=== PATIENT | male | born 1955 | race Caucasian/White ===

== ENCOUNTER 2018-04-01 05:00 | Inpatient (IN) | payer OTHER ==
[2018-03-31 12:14] LABS: BASOPHILS 0.4 % (0-2); EOSINOPHILS 3.4 % (0-7); HEMATOCRIT 42.8 % (42.0-54.0); HEMOGLOBIN 14.9 g/dL (13.5-17.5); IMMATURE GRANULOCYTES 1.1 % (0-5); LYMPHOCYTES 30.2 % (15-50); MCH 31.2 pg (26.0-34.0); MCHC 34.8 g/dL (31.0-37.0); MCV 89.7 fL (80.0-100.0); MEAN PLATELET VOLUME 9.7 fL (7.4-10.4); MONOCYTES 8.7 % (2-11); NEUTROPHILS 56.2 % (40-80); RBC 4.77 10x6/uL (4.20-6.10); RDW 12.6 % (11.5-14.5); WBC 5.6 10x3/uL (4.8-10.8)
[2018-03-31 12:20] LABS: PLATELET COUNT 227 10x3/uL (130-400)
[2018-03-31 12:22] LABS: APPEARANCE CLEAR (CLEAR); BILIRUBIN NEGATIVE (NEGATIVE); COLOR YELLOW (YELLOW); GLUCOSE NEGATIVE (NEGATIVE); KETONE NEGATIVE (NEGATIVE); NITRITE NEGATIVE (NEGATIVE); PROTEIN NEGATIVE (NEGATIVE); SPECIFIC GRAVITY 1.015 (1.005-1.020); UROBILINOGEN NORMAL (NORMAL)
[2018-03-31 12:43] LABS: APTT 39.7 SECONDS (22.8-39.4); INR 1.02 (0.85-1.17)
[2018-03-31 13:01] LABS: ALBUMIN 3.7 g/dL (3.4-5.0); ALKALINE PHOSPHATASE 71 U/L (46-116); ALT (SGPT) 175 U/L (10-68); BILIRUBIN - TOTAL 0.46 mg/dL (0.2-1.3); CALC OSMOLALITY 280 mosm/kg (275-300); CALCIUM 8.8 mg/dL (8.5-10.1); CARBON DIOXIDE 25.8 mmol/L (21.0-32.0); CHLORIDE - SERUM 107 mmol/L (98-107); CHOLESTEROL, TOTAL 84 mg/dL (0-200); CREATININE - SERUM 0.8 mg/dL (0.6-1.3); GLUCOSE 80 mg/dL (74-106); POTASSIUM - SERUM 4.7 mmol/L (3.5-5.1); PROTEIN - SERUM 6.8 g/dL (6.4-8.2); SODIUM 141 mmol/L (136-145); T4 THYROXIN - FREE 0.93 ng/dL (0.76-1.46); UREA NITROGEN 15 mg/dL (7-18); URIC ACID 5.3 mg/dL (2.6-7.2); eGFR NON AFRICAN AMERICAN > 90 mL/min (90-120)
[2018-04-01] VITALS (38 sets, daily range): BP systolic 72–136; BP diastolic 48–82; BMI 30.8
[~2018-04-01] VITALS: Ht 167.6 cm; Wt 82.7 kg
--- NOTE | ~2018-04-01 | CN ---
PATIENT NAME:DENIS NUÑEZ MEDICAL RECORD: [id number] : 53 LOCATION:[facility].CV05 ADMIT DATE: 04/01/18 ACCOUNT: [id number] CONSULTING PHYSICIAN: RAMONE ALDRICH MD REFERRING PHYSICIAN: ROSA VALENCIA MD DATE OF CONSULTATION: 04/02/2018 REASON FOR CONSULTATION: Medical management. HISTORY OF PRESENT ILLNESS: A 62-year-old gentleman, who is a patient of Dr. Barrios. Apparently 2 weeks ago, he developed substernal chest pain and he had presented to the Emergency Room. He was found to have arteriosclerotic heart disease. He had been seen by Dr. Valencia, who felt he would benefit from coronary artery bypass grafting. PAST MEDICAL HISTORY: Apparently, he has had migraine headaches most of his life. He also states that he had had a stroke in 2017, was found to have a patent foramen ovale. Apparently, he had this repaired in [facility]. The patient states he awakened approximately 2 weeks ago with substernal chest pain, presented for evaluation. FAMILY HISTORY: Father at 52, apparently had numerous transfusions in the 1960s, felt that his was secondary to cirrhosis, nondrinker. Mother also at 57 years of age, apparently had a history of having rheumatic fever as a youngster. The patient's twin brother has had cardiac stenting in the past, had pneumothorax. Sister apparently is healthy. HABITS: States he smoked as a kid, but has not smoked as an adult. 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 He is currently . He denies any ethanol, tobacco use or abuse. PAST SURGICAL HISTORY: He has had a vasectomy as well as a tonsillectomy and a right inguinal hernia repair. MEDICATIONS: None. ALLERGIES: None. REVIEW OF SYSTEMS: CONSTITUTIONAL: He denies any headaches, seizures, or syncope. HEENT: He denies any change in visual or auditory acuity. PULMONARY: He denied any shortness of breath, cough or congestion, history of TB, asthma or bronchitis. CARDIOVASCULAR: As stated above. GASTROINTESTINAL: No chronic nausea, vomiting, melena or hematochezia. GENITOURINARY: No urinary, frequency or dysuria. PHYSICAL EXAMINATION: GENERAL: The patient is postop day #1. He is alert. He is oriented times 3. He is in the ICU. VITAL SIGNS: His pulse ox is 92%, his blood pressure 111/63, his respiration 19, pulse 91. He is afebrile. HEENT: His head is normocephalic. No lesions. Ears: TMs clear. Eyes: CONSULT REPORT [id number] DENIS NUÑEZ Pupils are equal, round, reactive to light. His extraocular movements were intact. His nasal cavity, oral cavity, oropharynx clear. NECK: Supple. There is no adenopathy. HEART: Has a regular rate and rhythm without any murmurs, gallops or rubs. LUNGS: Clear. The patient has a central line placed. He also has chest tubes as well as Canseco catheter. SCDs on lower extremities. He has no active bleeding noted at the present time. He had a chest x-ray on the , chest x-ray revealed slightly worsened pulmonary venous congestion. He has a white count of 12.7, hemoglobin 11, hematocrit is 31.7, this is actually somewhat better than on April 01. His sodium is 136, potassium 4.2, chloride is 101, CO2 is 26.8, BUN is 18, creatinine is 1.5, his glucose is 178. Thyroid functions are normal. ASSESSMENT: Postoperative day #1 coronary artery bypass grafting times 2. History of CVA. History of patent foramen ovale with closure. PLAN: We will continue the current plan. We will follow along with you. Thanks for the consultation. TRANSINT:[id number] Voice Confirmation ID: [id number] DOCUMENT ID: [id number] RAMONE ALDRICH MD at 0938 CC: [id number] DICTATION DATE: 04/02/18 1108 NARROW FABRIC CALENDERER: 04/02/18 1211 ADM IN [facility] [address] [place] [address]
--- NOTE | ~2018-04-01 | OP ---
PATIENT NAME: DENIS NUÑEZ MEDICAL RECORD: [id number] :53 LOCATION:[facility] D.CV05 ADMISSION DATE:04/01/18 SURGEON: MITCHEL RON MD DATE OF OPERATION: 04/01/2018 SURGEON: Mitchel Ron MD. ANESTHESIA: General endotracheal, Dr. Miller. OPERATION PERFORMED: Coronary artery bypass: 1. Left internal thoracic to left anterior descending. 2 and 3. Reverse saphenous vein graft to the first diagonal, sequential obtuse marginal coronary artery. 4. Reverse saphenous vein graft to the right coronary artery. PREOPERATIVE DIAGNOSES: Atherosclerosis of the coronary arteries with angina. POSTOPERATIVE DIAGNOSIS: Atherosclerosis of the coronary arteries with angina. INDICATIONS FOR OPERATION: Angina pectoris. FINDINGS AT OPERATION: The left internal thoracic and reverse saphenous vein segment were of excellent quality for grafting. The target vessels were also good quality, although diffusely diseased. ESTIMATED BLOOD LOSS: Cell Saver was used. DESCRIPTION OF PROCEDURE: After informed consent and adequate preoperative medication evaluation, the patient was brought the operating room and placed on the table in supine position. After induction of general endotracheal anesthesia and application of appropriate monitoring devices, chest, neck, abdomen, and both legs were prepped and draped in sterile field. Utilizing Betadine scrub, alcohol, and Betadine solution, Betadine impregnated drape was also used. Saphenous vein was harvested from the right thigh, prepared for reverse saphenous vein graft. The leg was closed over drains utilizing 3-0 Vicryl and skin mohit. A median sternotomy incision was used and dissection carried down to the fascia. Hemostasis was maintained with electrocautery. Sternum was divided, innominate vein identified and protected. The left internal thoracic was taken down and prepared for grafting. The patient was given a calculated dose of heparin and cannulated in a standard fashion utilizing one aortic and one 2-stage cannula in the atrium and inferior vena cava. The patient was placed on cardiopulmonary bypass, cooled to 32 degrees centigrade. A crossclamp was placed just proximal to the aortic cannula and the patient was given cardioplegic solution through the aortic root. The patient was given a cold induction and cold maintenance. The patient was given cold intermittent cardioplegic solution throughout the procedure through the graft, through the root, or a combination of both. The first vessel to be grafted was the distal right. It was grafted end-to-side utilizing running 7-0 Prolene suture. The graft was measured back to the aorta and proximal anastomosis fashioned utilizing running 6-0 Prolene suture. Next, the first obtuse marginal was grafted end-to-side utilizing running 7-0 Prolene suture. Graft was measured to the first diagonal and a [id number] anastomosis fashioned utilizing running 7-0 Prolene suture. The graft was measured back to the aorta and the proximal anastomosis fashioned utilizing running 6-0 Prolene suture. Next, left internal thoracic was brought through the hole in pericardium, OPERATIVE REPORT [id number] DENIS NUÑEZ sutured to the left anterior descending end-to-side utilizing running 8-0 Prolene suture. Pedicle was attached to the epicardium with 7-0 Prolene suture. All maneuvers to remove trapped air was performed. The patient was given a warm cardioplegic reperfusion and controlled reperfusion. The patient was rewarmed to 37 degrees centigrade. Two atrial and two ventricular pacing wires were placed in the heart and brought out through the epigastric area. The patient was weaned from cardiopulmonary bypass. After being stable off bypass, given a calculated dose of protamine to reverse the heparin. Hemostasis was achieved. A #40 right angle and #36 chest tubes brought in through the epigastric area and placed in the mediastinum. A separate left Mikel drain was placed in the left hemithorax at the level of diaphragm. The chest was again irrigated. Instrument count and sponge count were correct times 2. The chest was closed in layers utilizing #7 wire on the sternum, #2 Vicryl on the linea alba and pectoralis fascia. Subcutaneous tissue was approximated with 3-0 Vicryl and skin was approximated with 3-0 subcuticular Vicryl. Sterile dressings were applied. The patient tolerated the procedure well and was transferred to cardiovascular recovery in stable condition. TRANSINT:[id number] Voice Confirmation ID: [id number] DOCUMENT ID: [id number] MITCHEL RON MD at 1256 CC: [id number] DICTATION DATE: 04/01/18 1452 FIELD ADMINISTRATOR: 04/01/18 1549 ADM IN [place] [id number] [place] [address]
--- NOTE | ~2018-04-01 | MORECARE ---
CASE MANAGEMENT DISCHARGE SUMMARY PATIENT: DENIS MCPHERSON UNIT: [id number] ADM DATE: 04/01/18 AGE: 62 : 53 SEX: M ROOM/BED: [facility] AUTHOR: CASE, PROJECT CONSULTANT PHYSICIAN: REFERRING PHYSICIAN: ROSA VALENCIA MD DATE OF SERVICE: 04/01/18 Discharge Plan Patient Name: DENIS MCPHERSON Facility: [facility]:[place] : 1955 Planned Disposition: Home Anticipated Discharge Date: Discharge Date: Expected LOS: Initial Reviewer: [email or web address] Initial Review Date: 04/04/2018 Generated: 04/07/18 12:00 pm Comments DCP- Discharge Planning Updated by [email or web address]: Nelsy Guadalupe on 04/04/18 9:[address] Patient Name: DENIS MCPHERSON Admission Status: Elective Accout number: [id number] Admission Date: 04-01-2018 : 1955 Admission Diagnosis: Attending: ROSA VALENCIA Current LOS: 3 Anticipated DC Date: Planned Disposition: Home Primary Insurance: [facility] Discharge Planning Comments: CM met with patient and regarding discharge planning. Patient states that they plan on discharging home. will transport home in private vehicle. Patient denies any needs at this time. Patient may need walk test if 02 is needed at time of discharge. CM will continue to follow and assist in discharge planning as needed. Inspecting Supervisor: Nelsy Guadalupe DCPIA - Discharge Planning Initial Assessment Updated by [email or web address]: Nelsy Guadalupe on 04/04/18 10:21 am * Is the patient Alert and Oriented? Yes * How many steps to enterexit or inside your home? * PCP Dr. Capellan * Pharmacy [facility] * Preadmission Environment Home with Family * ADLs Independent * Equipment None * List name and contact numbers for known caregivers / representatives who currently or will assist patient after discharge: Naheed Mchperson () [phone] Kayli Kang (daughter) [phone] * Verbal permission to speak to the caregivers and representatives has been obtained from the patient. Yes * Community resources currently utilized None * Additional services required to return to the preadmission environment? No * Can the patient safely return to the preadmission environment? Yes * Has this patient been hospitalized within the prior 30 days at any hospital? Yes External Providers External Provider: OTHER-OTHER Next Contact Date: Service Request Date: Service Type: Resolution: Reviewer: Comments: Patient Name: DENIS MCPHERSON Page [id number] All edits/amendments must be made on the electronic document DICTATION DATE: 04/07/181099 MOLD MOVER: 04/07/18 1100 RPT#: [id number] DC DATE: STATUS: ADM IN [facility] [address] [place] [address] END OF REPORT
--- NOTE | ~2018-04-01 | HP ---
PATIENT: DENIS NUÑEZ MEDICAL RECORD: [id number] ACCOUNT: [id number] LOCATION:[facility].CV05 : 53 ADMISSION DATE: 04/01/18 HISTORY AND PHYSICAL EXAMINATION DENIS Enriquez (62yo, M) ID# [id number]. Date/Time03/31/2018 09:01DONXC34 1955Service Dept.NPP_[facility] ClinicProviderEDBLAS VALENCIA MDInsuranceMed Primary: [employer] Insurance # : [id number] Policy/Group # : [id number] Referring Provider Name : DENNYS LOPEZ Employer Name : UNKNOWN Prescription: [employer] - Member is eligible. Chief Complaint Followup: Coronary atherosclerosis PREOP FOR CABG Patient's Care Team Referring Provider (): DENNYS LOPEZ: [address] [place] [phone], , Machine Ii Engraver: RAJANI MILLS MD: [address] [place] [phone], , Patient's Pharmacies [facility] ([facility]): [address] [place] [address] [address], [facility] [address], , Vitals BP:124/70 sitting R arm 03/31/2018 09:46 am 120/68 sitting L arm 03/31/2018 09:47 amHR:70/REG 03/31/2018 09:47 amHt:5 ft 6 in 03/31/2018 09:43 amWt:180 lbs 03/31/2018 09:43 amBMI:29.1 03/31/2018 09:43 amAllergies Reviewed Allergies NKDAMedications Reviewed Medications amitriptyline 25 mg tablet Take 1 tablet(s) every day by oral route.03/28/18 enteredKat WilsonAspir-81 81 mg tablet,delayed release Take 1 tablet(s) every day by oral route.03/28/18 enteredKat Wilsonatorvastatin 40 mg wexxvt90/18/18 filledOPTUMRXbutalbital 50 mg-acetaminophen 325 mg-caffeine 40 mg-codeine 30 mg cap Take 1 capsule(s) every 4 hours by oral route.03/28/18 enteredKathy Wilsonenoxaparin 60 mg/0.6 mL subcutaneous rhdxhab12/20/18 filledOPTUMRXisosorbide mononitrate ER 30 mg tablet,extended release 24 hr03/23/18 filledOPTUMRXmetoprolol succinate ER 25 mg tablet,extended release 24 hr03/23/18 filledOPTUMRXnitroglycerin 0.4 mg sublingual qzaiug16/18/18 filledOPTUMRXXarelto 20 mg tablet was on after PFO pqkordh14/18/18 filledOPTUMRXProblems Reviewed Problems Coronary atherosclerosis - Onset: 03/29/2018 Family History Reviewed Family History parent, siblings with cardiovascular disease child with hypertensionSocial History Reviewed Social History Cardiology Smoking Status: Former smoker HISTORY AND PHYSICAL [id number] DENIS NUÑEZ Alcohol intake: None Surgical History Reviewed Surgical History Other - 08/26/2017 - PFO closure Past Medical History Reviewed Past Medical History Cancer: Y - skin Depression: Y GERD: Y Hyperlipidemia: Y Hypertension: Y Stroke: Y Notes: PFO, closure done 08/26/17 Documents for Discussion Discussed the following documents: HEPATITIS (A+B+C) PANEL, SERUM - 03/24/18 Results: - SERUM OR PLASMA HEPATITIS A VIRUS IGM ANTIBODY DETECTION BY I MMUNOASSAY: NEGATIVE NEGATIVE - SERUM OR PLASMA HEPATITIS B VIRUS CORE IGM ANTIBODY DETECTION BY IMMUNOA: NEGATIVE NEGATIVE - SERUM OR PLASMA HEPATITIS B VIRUS SURFACE ANTIGEN DETECTION BY IMMUNOASSA: NEGATIVE NEGATIVE - HCV AB S/CO SERPL EIA: 0.2 PT/INR - 03/23/18 US, DUPLEX, CAROTID ARTERY - 03/21/18 UNKNOWN - 03/21/18 UNKNOWN - 03/21/18 CARDIAC CATHETERIZATION (SURG) - 03/21/18 Screening None recorded. HPI Angina/Chest Pain Reported by patient. Location: chest; does not radiate Quality: pressure; squeezing; tightness; heaviness Severity: mild Duration: lasts seconds; has noted for months Onset/Timing: abrupt onset without warning Context: exertional; occurs with physical stress Alleviating Factors: relieved with NTG Aggravating Factors: worse with activity Associated Symptoms: chest discomfort; shortness of breath; exertional dyspnea atherosclerosis coronary arteries with angina ROS Patient reports exercise intolerance but reports no fever, no night sweats, no significant weight gain, and no significant weight loss. He reports chest pain on exertion, arm pain on exertion, and shortness of breath when walking but reports no shortness of breath when lying down, no palpitations, and no known heart murmur. He reports no dry eyes , no irritation, and no vision change. He reports no difficulty hearing and no ear pain. He reports no frequent nosebleeds and no nose/sinus problems. He reports no sore throat, no bleeding gums, no snoring, no dry mouth, no mouth ulcers, no oral abnormal i ties, and no teeth problems. He reports no jugular HISTORY AND PHYSICAL [id number] NUÑEZ,LOYAL vein distension and no swollen glands. He reports no cough, no wheezing, no shortness of breath, and no coughing up blood. He reports no abdominal pain, no vomiting, normal appetite, no diarrhea, not vomi t ing blood, no nausea, and no constipation. He reports no incontinence, no difficulty urinating, no hematuria, and no increased frequency. He reports no muscle aches, no muscle weakness, no arthralgias/joint pain, no back pain, and no swelling in the extre m ities. He reports no abnormal mole, no jaundice, and no rashes. He reports no loss of consciousness, no weakness, no numbness, no seizures, no dizziness, and no headaches. He reports no depression, no sleep disturbances, feeling safe in relationship, and no alcohol abuse. He reports no fatigue. He reports no swollen glands and no bruising. He reports no runny nose, no sinus pressure, no itching, no hives, and no frequent sneezing. ROS as noted in the HPI Physical Exam Patient is a 62-year-old male. Constitutional: General Appearance well nourished and developed and healthy-appearing. Level of Distress NAD. Ambulation ambulating normally. Cardiovascular: Apical Impulse not displaced or no thrill. Heart Auscultation normal s1 and s2; no murmurs, rubs, or gallops; and RRR. Arterial Pulses no abdominal aorta bruits, femoral bruits, or popliteal bruits and 2+ bilateral, carotid 2+ bilateral, femoral 2+ bilateral, popliteal 2+ bilateral, and dorsalis p roshan 2+ bilateral. Edema no edema or varicosities. Lungs: Repiratory Effort no dyspnea. Percussion no hyperresonance or dullness or flatness. Auscultation no wheezing, rhonchi, or rales / crackles and breathing sounds normal, good air movement, and CTA except as noted. Abdomen: Bowl Sounds normal. Inspection and Palpation no tenderness, guarding, masses, or rebound tenderness and soft and non-distended. Liver non-tender and no hepatomegaly. Spleen non-tender and no splenomegaly. Hernia none palpable. Musculoskeletal System: Gait And Stance normal gait and stance. Digits and Nails normal nails and no cyanosis. Neurologic: Cranial Nerves grossly intact. Reflexes DTRs 2+ bilaterally throughout. Sensation grossly intact. Lymph Nodes: Lymph Nodes no cervical LAD, supraclavicular LAD, axillary LAD, or inguinal LAD. Eyes: Lids and Conjunctivae no discharge or pallor and non-injected. Pupils PERRLA. Cornea grossly intact. EOM EOMI. Lens clear. Sclerae non-icteric. Neck: Neck no masses, enlarged lymph nodes, or carotid bruits and supple and trachea midline. Thyroid no enlargement or nodules and non-tender. Skin: Inspection and Palpation no rash, lesions, ulcers, jaundice, or abnormal nevi. Assessment / Plan atherosclerosis coronary artery disease with angina increasing frequency 1. Coronary atherosclerosis I25.110: Atherosclerotic heart disease of [place] coronary artery with unstable angina pectoris HISTORY AND PHYSICAL [id number] DENIS NUÑEZ Discussion Notes I have discussed the patient's disease process with him and his in detail as well as the alternative methods of treatment. We discussed coronary artery bypass including the expected benefits and risks which include bleeding, infection, stroke, , and the imponderables. He understands all of the above and wishes to proceed with planned aleja wen. ROSA VALENCIA MD at 1256 CC: [id number] DICTATION DATE: 03/31/18919 KOSHER DIETARY SERVICE SUPERVISOR: KP 03/31/18 1316 ADM IN [facility] [address] [place] [id number]
--- NOTE | ~2018-04-01 | TEE ---
PATIENT:DENIS NUÑEZ MEDICAL RECORD: [id number] LOCATION:[place] [address] AGE OF PATIENT: 62 ADMISSION DATE: 04/01/18 SEX: M REFERRING PHYSICIAN: INTERPRETING PHYSICIAN: TERESA MARTÍNEZ MD TRANSESOPHAGEAL ECHOCARDIOGRAM Date: 04/01/18 ALPHONSO CHARGE Y INDICATIONS: CABG PREMEDICATIONS: PATIENT'S RESPONSE PROCEDURE DOPPLER MEASUREMENTS: LVIT LA PA RA LVOT RVOT Asc. Ao AV Gradient Peak AV Mean AV Area MV Gradient Peak MV Mean MV Area INTERPRETATION: LVD: 3.6 LVS: 1.9 Doppler: 2-D: COLOR FLOW DOPPLER NORMAL SALINE STUDY: MISCELLANOUS: DIAGNOSIS: PLAN: Enterprise Resource Planner:Nadine Casanova Gps Navigation Installer: Andrea FAUST COMMENTS: DATE OF SERVICE: 04/01/2018 PROCEDURE: Transesophageal echo evaluation of valvular structures during bypass surgery. FINDINGS: 1. Left ventricular chamber size is within normal limits. Left ventricular systolic function is normal. Overall ejection fraction estimated at 60%. 2. Left atrium, right atrium, and right ventricle chamber sizes are within TRANSESOPHAGEAL ECHOCARDIOGRAM REPORT [id number] DENIS NUÑEZ normal limits. 3. Valvular structures have normal structure and motion. 4. Doppler interrogation reveals mild mitral regurgitation, trace aortic insufficiency, mild tricuspid regurgitation, no other valvular insufficiency or stenosis. 5. No evidence of pericardial effusion or left ventricular thrombus. TRANSINT:[id number] Voice Confirmation ID: [id number] DOCUMENT ID: [id number] at 1816 CC: [id number] DICTATION DATE: 04/01/18 1234 STORE ADMINISTRATIVE ASSISTANT: 04/01/18 1254 ADM IN [place] [id number] [place] [id number]
[~2018-04-01 05:00] MED LIST: ASPIRIN81 MG PO; BUTALB-APAP-CA1 EACH PO; ELAVIL25 MG PO; ISOSORBIDE MONO30 M1 PO; LIPITOR40 MG PO; LOVENOX60 MG/0.6 SC; NITROQUICK0.4 MG SL; TOPROL XL25 MG PO; XARELTO20 MG PO
[2018-04-01 07:42] LABS: PLT FUNCT.(P2Y12) PLAVIX 258 PRU (194-418)
[2018-04-01 14:10] LABS: MCHC 35.3 g/dL (31.0-37.0); MCV 87.8 fL (80.0-100.0); MEAN PLATELET VOLUME 9.5 fL (7.4-10.4); RDW 12.5 % (11.5-14.5)
[2018-04-01 14:26] LABS: HEMOGLOBIN 10.2 g/dL (13.5-17.5); RBC 3.29 10x6/uL (4.20-6.10); WBC 16.2 10x3/uL (4.8-10.8)
[2018-04-01 14:27] LABS: HEMATOCRIT 28.9 % (42.0-54.0)
[2018-04-01 14:34] LABS: APTT 38.5 SECONDS (22.8-39.4)
[2018-04-01 14:36] LABS: CARBON DIOXIDE 25.2 mmol/L (21.0-32.0); CHLORIDE - SERUM 109 mmol/L (98-107); CREATININE - SERUM 0.9 mg/dL (0.6-1.3); POTASSIUM - SERUM 4.5 mmol/L (3.5-5.1); SODIUM 143 mmol/L (136-145); UREA NITROGEN 16 mg/dL (7-18); eGFR NON AFRICAN AMERICAN > 90 mL/min (90-120)
[2018-04-01 14:41] LABS: INR 1.38 (0.85-1.17); PROTIME 16.5 SECONDS (11.6-15.0)
[2018-04-01 14:49] LABS: CALC OSMOLALITY 290 mosm/kg (275-300); GLUCOSE 191 mg/dL (74-106)
[2018-04-01 14:50] LABS: CALCIUM 6.6 mg/dL (8.5-10.1)
[2018-04-02] VITALS (52 sets, daily range): BP systolic 98–136; BP diastolic 43–76
[2018-04-02 06:35] LABS: HEMATOCRIT 31.7 % (42.0-54.0); MCH 30.8 pg (26.0-34.0); MCHC 34.7 g/dL (31.0-37.0); MCV 88.8 fL (80.0-100.0); MEAN PLATELET VOLUME 10.3 fL (7.4-10.4); RBC 3.57 10x6/uL (4.20-6.10); RDW 13.6 % (11.5-14.5); WBC 12.7 10x3/uL (4.8-10.8)
[2018-04-02 06:49] LABS: ALBUMIN 3.7 g/dL (3.4-5.0); ANION GAP 12.4 mmol/L (8-16); BILIRUBIN - TOTAL 0.79 mg/dL (0.2-1.3); CALCIUM 7.4 mg/dL (8.5-10.1); CARBON DIOXIDE 26.8 mmol/L (21.0-32.0); POTASSIUM - SERUM 4.2 mmol/L (3.5-5.1); PROTEIN - SERUM 5.3 g/dL (6.4-8.2)
[2018-04-02 06:50] LABS: CREATININE - SERUM 1.5 mg/dL (0.6-1.3)
[2018-04-03] VITALS (25 sets, daily range): BP systolic 98–174; BP diastolic 58–96
[2018-04-03 07:39] LABS: HEMATOCRIT 31.4 % (42.0-54.0); HEMOGLOBIN 10.6 g/dL (13.5-17.5); MCH 30.5 pg (26.0-34.0); MCHC 33.8 g/dL (31.0-37.0); MCV 90.5 fL (80.0-100.0); MEAN PLATELET VOLUME 10.1 fL (7.4-10.4); RBC 3.47 10x6/uL (4.20-6.10); RDW 13.7 % (11.5-14.5)
[2018-04-03 07:54] LABS: ALBUMIN 3.1 g/dL (3.4-5.0); ANION GAP 6.6 mmol/L (8-16); BILIRUBIN - TOTAL 0.71 mg/dL (0.2-1.3); CALCIUM 7.8 mg/dL (8.5-10.1); CARBON DIOXIDE 32.7 mmol/L (21.0-32.0); CREATININE - SERUM 1.1 mg/dL (0.6-1.3); POTASSIUM - SERUM 4.3 mmol/L (3.5-5.1); PROTEIN - SERUM 5.3 g/dL (6.4-8.2)
[2018-04-04] VITALS (25 sets, daily range): BP systolic 103–140; BP diastolic 57–78; Ht 167.6 cm; Wt 82.7 kg
[2018-04-04 06:06] LABS: HEMATOCRIT 28.6 % (42.0-54.0); HEMOGLOBIN 9.8 g/dL (13.5-17.5); MCH 30.9 pg (26.0-34.0); MCHC 34.3 g/dL (31.0-37.0); MCV 90.2 fL (80.0-100.0); MEAN PLATELET VOLUME 9.9 fL (7.4-10.4); PLATELET COUNT 97 10x3/uL (130-400); RBC 3.17 10x6/uL (4.20-6.10); RDW 13.4 % (11.5-14.5); WBC 9.9 10x3/uL (4.8-10.8)
[2018-04-04 06:39] LABS: ALBUMIN 2.8 g/dL (3.4-5.0); ALKALINE PHOSPHATASE 51 U/L (46-116); ALT (SGPT) 201 U/L (10-68); BILIRUBIN - TOTAL 0.73 mg/dL (0.2-1.3); CALC OSMOLALITY 266 mosm/kg (275-300); CARBON DIOXIDE 32.8 mmol/L (21.0-32.0); CHLORIDE - SERUM 98 mmol/L (98-107); CREATININE - SERUM 0.9 mg/dL (0.6-1.3); GLUCOSE 121 mg/dL (74-106); POTASSIUM - SERUM 3.8 mmol/L (3.5-5.1); PROTEIN - SERUM 5.4 g/dL (6.4-8.2); SODIUM 132 mmol/L (136-145); UREA NITROGEN 15 mg/dL (7-18); eGFR NON AFRICAN AMERICAN > 90 mL/min (90-120)
[2018-04-04 07:18] LABS: PLATELET ESTIMATE DECREASED
[2018-04-05] VITALS (26 sets, daily range): BP systolic 103–137; BP diastolic 59–74
[2018-04-05 06:24] LABS: HEMATOCRIT 28.7 % (42.0-54.0); HEMOGLOBIN 9.4 g/dL (13.5-17.5); MCH 30.1 pg (26.0-34.0); MCHC 32.8 g/dL (31.0-37.0); RBC 3.12 10x6/uL (4.20-6.10); RDW 13.8 % (11.5-14.5); WBC 8.1 10x3/uL (4.8-10.8)
[2018-04-05 06:43] LABS: ALBUMIN 2.5 g/dL (3.4-5.0); ALKALINE PHOSPHATASE 52 U/L (46-116); ALT (SGPT) 160 U/L (10-68); BILIRUBIN - TOTAL 0.64 mg/dL (0.2-1.3); CALC OSMOLALITY 267 mosm/kg (275-300); CARBON DIOXIDE 31.6 mmol/L (21.0-32.0); CHLORIDE - SERUM 99 mmol/L (98-107); CREATININE - SERUM 0.9 mg/dL (0.6-1.3); GLUCOSE 116 mg/dL (74-106); POTASSIUM - SERUM 4.1 mmol/L (3.5-5.1); PROTEIN - SERUM 5.5 g/dL (6.4-8.2); SODIUM 133 mmol/L (136-145); UREA NITROGEN 15 mg/dL (7-18); eGFR NON AFRICAN AMERICAN > 90 mL/min (90-120)
[2018-04-06] VITALS (24 sets, daily range): BP systolic 104–137; BP diastolic 49–77
[2018-04-06 06:07] LABS: HEMATOCRIT 28.6 % (42.0-54.0); HEMOGLOBIN 9.6 g/dL (13.5-17.5); MCH 30.6 pg (26.0-34.0); MCHC 33.6 g/dL (31.0-37.0); MCV 91.1 fL (80.0-100.0); MEAN PLATELET VOLUME 9.5 fL (7.4-10.4); RBC 3.14 10x6/uL (4.20-6.10); RDW 13.6 % (11.5-14.5); WBC 7.6 10x3/uL (4.8-10.8)
[2018-04-06 06:30] LABS: ALBUMIN 2.3 g/dL (3.4-5.0); ALKALINE PHOSPHATASE 51 U/L (46-116); ALT (SGPT) 118 U/L (10-68); BILIRUBIN - TOTAL 0.57 mg/dL (0.2-1.3); CALC OSMOLALITY 269 mosm/kg (275-300); CALCIUM 8.4 mg/dL (8.5-10.1); CARBON DIOXIDE 29.6 mmol/L (21.0-32.0); CHLORIDE - SERUM 101 mmol/L (98-107); CREATININE - SERUM 0.8 mg/dL (0.6-1.3); GLUCOSE 122 mg/dL (74-106); POTASSIUM - SERUM 3.9 mmol/L (3.5-5.1); PROTEIN - SERUM 5.5 g/dL (6.4-8.2); SODIUM 134 mmol/L (136-145); UREA NITROGEN 15 mg/dL (7-18); eGFR NON AFRICAN AMERICAN > 90 mL/min (90-120)
[2018-04-07] VITALS (13 sets, daily range): BP systolic 96–137; BP diastolic 56–79
[2018-04-07] MEDS ORDERED: HEMOCYTE PLUS C1 CAP PO (10:17)
[2018-04-07] MEDS ORDERED: PERCOCET 10/3251 TA1 PO (10:17)
[2018-04-07] MEDS ORDERED: COLACE100 MG PO (10:17)
[2018-04-07] MEDS ORDERED: K-DUR20 MEQ PO (10:17)
[2018-04-07] MEDS ORDERED: LASIX40 MG PO (10:17)
[2018-04-07] MEDS ORDERED: CORDARONE200 MG PO (10:17)
== END 2018-04-07 13:40 | disposition home health service (06) | DRG 236 ==
LOC: D.SDCHOLD 05:00 → D.CVICU 05:00 → D.SDCHOLD 07:30 → D.CVICU 12:15
PROVIDERS: Internal Medicine Cardiovascular Disease
PROC: 021209W Bypass Coronary Artery, Three Arteries from Aorta with Autologous Venous Tissue, Open Approach (ICD-10-PCS; 2018-04-01)
PROC: 06BP0ZZ Excision of Right Saphenous Vein, Open Approach (ICD-10-PCS; 2018-04-01)
PROC: 5A1221Z Performance of Cardiac Output, Continuous (ICD-10-PCS; 2018-04-01)
PROC: B24BZZ4 Ultrasonography of Heart with Aorta, Transesophageal (ICD-10-PCS; 2018-04-01)
PROC: 02100ZC Bypass Coronary Artery, One Artery from Thoracic Artery, Open Approach (ICD-10-PCS; principal; 2018-04-01 07:30)
DX: I25.110 Atherosclerotic heart disease of native coronary artery with unstable angina pectoris (principal); J98.11 Atelectasis; I10 Essential (primary) hypertension; K21.9 Gastro-esophageal reflux disease without esophagitis; E78.5 Hyperlipidemia, unspecified; Z86.73 Personal history of transient ischemic attack (TIA), and cerebral infarction without residual deficits; D64.9 Anemia, unspecified; R13.10 Dysphagia, unspecified

== ENCOUNTER → 2018-04-21 11:19 | Outpatient (CLI) | payer OTHER ==
[2018-04-04 16:07] VITALS: BMI 31.3
[~2018-04-21 11:19] MED LIST changes: +COLACE100 MG PO; +CORDARONE200 MG PO; +HEMOCYTE PLUS C1 CAP PO; +K-DUR20 MEQ PO; +LASIX40 MG PO; +PERCOCET 10/3251 TA1 PO
[2018-04-21 11:48] LABS: HEMATOCRIT 39.6 % (42.0-54.0); HEMOGLOBIN 12.9 g/dL (13.5-17.5); MCH 30.1 pg (26.0-34.0); MCHC 32.6 g/dL (31.0-37.0); MCV 92.5 fL (80.0-100.0); MEAN PLATELET VOLUME 8.9 fL (7.4-10.4); RBC 4.28 10x6/uL (4.20-6.10); RDW 13.2 % (11.5-14.5); WBC 4.9 10x3/uL (4.8-10.8)
[2018-04-21 12:23] LABS: ALBUMIN 3.3 g/dL (3.4-5.0); ANION GAP 15.5 mmol/L (8-16); BILIRUBIN - TOTAL 0.37 mg/dL (0.2-1.3); CALCIUM 8.9 mg/dL (8.5-10.1); CARBON DIOXIDE 23.5 mmol/L (21.0-32.0); CREATININE - SERUM 1.2 mg/dL (0.6-1.3); PROTEIN - SERUM 6.8 g/dL (6.4-8.2)
== END | disposition home or self-care (01) ==
LOC: D.RAD 08:00
PROVIDERS: Internal Medicine Cardiovascular Disease
DX: D64.9 Anemia, unspecified (principal); J91.8 Pleural effusion in other conditions classified elsewhere

== ENCOUNTER → 2018-08-31 18:15 | Outpatient (CLI) | payer OTHER ==
[2018-04-04 16:07] VITALS: BMI 31.3
[2018-08-31 19:32] LABS: ANION GAP 15.9 mmol/L (8-16); CALCIUM 9.2 mg/dL (8.5-10.1); CARBON DIOXIDE 24.8 mmol/L (21.0-32.0); CREATININE - SERUM 1.1 mg/dL (0.6-1.3); POTASSIUM - SERUM 4.7 mmol/L (3.5-5.1)
== END | disposition home or self-care (01) ==
LOC: D.LABREF 18:15
PROVIDERS: Nurse Practitioner
DX: R60.9 Edema, unspecified (principal)

== ENCOUNTER → 2019-04-21 10:22 | Outpatient (CLI) | payer MEDICARE, OTHER ==
[2018-04-04 16:07] VITALS: BMI 31.3
== END | disposition home or self-care (01) ==
LOC: D.HCCARDIO 10:22
PROVIDERS: ATTEND Internal Medicine Cardiovascular Disease
DX: I25.10 Atherosclerotic heart disease of native coronary artery without angina pectoris (principal)

== ENCOUNTER → 2019-05-02 10:18 | Outpatient (CLI) | payer MEDICARE, OTHER ==
[2018-04-04 16:07] VITALS: BMI 31.3
== END | disposition home or self-care (01) ==
LOC: D.HCCARDIO 10:18
PROVIDERS: ATTEND Internal Medicine Cardiovascular Disease
DX: I25.810 Atherosclerosis of coronary artery bypass graft(s) without angina pectoris (principal)

== ENCOUNTER 2019-10-28 21:53 | Inpatient (IN) | payer MEDICARE, OTHER ==
[~2019-10-28] VITALS: Ht 167.6 cm; Wt 59.5 kg
[2019-10-28 22:17] LABS: BASOPHILS 0.2 % (0-2); EOSINOPHILS 0.6 % (0-7); HEMATOCRIT 46.1 % (42.0-54.0); HEMOGLOBIN 16.7 g/dL (13.5-17.5); IMMATURE GRANULOCYTES 0.6 % (0-5); LYMPHOCYTES 14.1 % (15-50); MCHC 36.2 g/dL (31.0-37.0); MCV 88.3 fL (80.0-100.0); MEAN PLATELET VOLUME 9.4 fL (7.4-10.4); MONOCYTES 8.1 % (2-11); NEUTROPHILS 76.4 % (40-80); RBC 5.22 10x6/uL (4.20-6.10); RDW 12.6 % (11.5-14.5); WBC 12.7 10x3/uL (4.8-10.8)
[2019-10-28 22:22] LABS: CALC OSMOLALITY 278 mosm/kg (275-300); CALCIUM 9.8 mg/dL (8.5-10.1); CARBON DIOXIDE 23.5 mmol/L (21.0-32.0); CHLORIDE - SERUM 102 mmol/L (98-107); CREATININE - SERUM 1.1 mg/dL (0.6-1.3); GLUCOSE 128 mg/dL (74-106); POTASSIUM - SERUM 3.5 mmol/L (3.5-5.1); SODIUM 139 mmol/L (136-145); UREA NITROGEN 9 mg/dL (7-18); eGFR NON AFRICAN AMERICAN 71 mL/min (90-120)
[2019-10-28 22:23] LABS: D-DIMER-QUANTITATIVE 0.99 ug/mLFEU (0.20-0.54)
[2019-10-28 22:24] LABS: PLATELET COUNT 250 10x3/uL (130-400)
[2019-10-28 22:39] LABS: ALBUMIN 3.7 g/dL (3.4-5.0); ALKALINE PHOSPHATASE 100 U/L (30-120); ALT (SGPT) 31 U/L (10-68); BILIRUBIN - TOTAL 1.03 mg/dL (0.2-1.3); CKMB 0.5 U/L (0.0-3.6); CREATINE KINASE 65 UL (21-232); MAGNESIUM - SERUM 1.6 mg/dL (1.8-2.4); PROTEIN - SERUM 7.9 g/dL (6.4-8.2)
[2019-10-28 22:42] LABS: TROPONIN-I < 0.017 ng/mL (0.000-0.060)
--- NOTE | 2019-10-28 23:14 | NUR ---
PRIOR TO FIRST NITRO ADMINISTRATION PT REPORTS PAIN IS 04/15 BP-176/96 HR-85 O2 100%
--- NOTE | 2019-10-28 23:14 | NUR ---
HOLD ASA PER EDP DOWNEN
--- NOTE | 2019-10-28 23:15 | NUR ---
PT COLOR WNL FOR RACE. RESPIRATIONS ARE EVEN AND UNLABORED. NO DISTRESS NOTED. FAMILY AT BEDSIDE. VSS. MONITORED BY PULSE OX, CARDIAC, AND BP MONITORING. WILL CONTINUE TO MONITOR PATIENT.
--- NOTE | 2019-10-29 00:38 | NUR ---
PATIENT TO FLOOR WITH SIGNIFICANT OTHER. ANSWERES HISTORY QUESTIONS APPROPRIATELY. NO COMPLAINTS OF PAIN AT THIS TIME. ADMISSION HISTORY, VITAL SIGNS, MACHINIST INSTRUCTOR, AND EDUCATION ON NPO STATUS PROVIDED FOR PATIENT. NO OTHER NEEDS AT THIS TIME. CALL LIGHT IN REACH. CPOC.
[2019-10-29 05:03] LABS: BASOPHILS 0.1 % (0-2); EOSINOPHILS 0.5 % (0-7); HEMATOCRIT 40.2 % (42.0-54.0); IMMATURE GRANULOCYTES 0.5 % (0-5); LYMPHOCYTES 13.9 % (15-50); MCHC 34.8 g/dL (31.0-37.0); MCV 89.1 fL (80.0-100.0); MEAN PLATELET VOLUME 9.6 fL (7.4-10.4); MONOCYTES 8.7 % (2-11); NEUTROPHILS 76.3 % (40-80); PLATELET COUNT 209 10x3/uL (130-400); RBC 4.51 10x6/uL (4.20-6.10); RDW 12.6 % (11.5-14.5)
[2019-10-29 05:08] LABS: WBC 8.7 10x3/uL (4.8-10.8)
[2019-10-29 05:37] LABS: ALKALINE PHOSPHATASE 84 U/L (30-120); ALT (SGPT) 27 U/L (10-68); AMYLASE - SERUM 39 U/L (25-115); CALC OSMOLALITY 275 mosm/kg (275-300); CALCIUM 8.8 mg/dL (8.5-10.1); CHLORIDE - SERUM 104 mmol/L (98-107); GLUCOSE 119 mg/dL (74-106); LIPASE 89 U/L (73-393); PROTEIN - SERUM 6.4 g/dL (6.4-8.2); SODIUM 138 mmol/L (136-145); TROPONIN-I < 0.017 ng/mL (0.000-0.060); UREA NITROGEN 10 mg/dL (7-18); eGFR NON AFRICAN AMERICAN 80 mL/min (90-120)
[2019-10-29 05:38] LABS: POTASSIUM - SERUM 4.2 mmol/L (3.5-5.1)
[2019-10-29 12:06] VITALS: Ht 167.6 cm; Wt 59.5 kg
[2019-10-29 13:46] LABS: INR 0.99 (0.85-1.17)
[2019-10-29 16:10] LABS: CKMB 0.5 U/L (0.0-3.6); CREATINE KINASE 56 UL (21-232)
[2019-10-29 16:12] LABS: TROPONIN-I < 0.017 ng/mL (0.000-0.060)
--- NOTE | 2019-10-29 19:10 | NUR ---
BEDSIDE REPORT RECEIVED FROM DAY SHIFT, PT CARE ASSUMED. INTRODUCED SELF AND WROTE NAME ON BOARD. PT SITTING UP IN BED, WATCHING TV, AAOX4. DENIES ANY NEEDS AT THIS TIME. BED IN LOWEST POSITION, CALL LIGHT WITHIN REACH. WILL CONTINUE TO MONITOR.
[2019-10-29 19:53] LABS: CKMB 0.4 U/L (0.0-3.6); CREATINE KINASE 47 UL (21-232); TROPONIN-I < 0.017 ng/mL (0.000-0.060)
[2019-10-30 04:28] LABS: BASOPHILS 0.1 % (0-2); HEMATOCRIT 36.3 % (42.0-54.0); HEMOGLOBIN 12.7 g/dL (13.5-17.5); IMMATURE GRANULOCYTES 0.3 % (0-5); LYMPHOCYTES 16.1 % (15-50); MCH 31.2 pg (26.0-34.0); MCV 89.2 fL (80.0-100.0); MEAN PLATELET VOLUME 9.5 fL (7.4-10.4); MONOCYTES 9.4 % (2-11); NEUTROPHILS 72.1 % (40-80); PLATELET COUNT 181 10x3/uL (130-400); RBC 4.07 10x6/uL (4.20-6.10); RDW 12.5 % (11.5-14.5)
[2019-10-30 04:52] LABS: ALBUMIN 2.5 g/dL (3.4-5.0); ALKALINE PHOSPHATASE 69 U/L (30-120); ALT (SGPT) 23 U/L (10-68); BILIRUBIN - TOTAL 0.65 mg/dL (0.2-1.3); CALC OSMOLALITY 279 mosm/kg (275-300); CALCIUM 7.7 mg/dL (8.5-10.1); CARBON DIOXIDE 24.3 mmol/L (21.0-32.0); CHLORIDE - SERUM 107 mmol/L (98-107); CKMB 0.7 U/L (0.0-3.6); CREATINE KINASE 51 UL (21-232); CREATININE - SERUM 0.9 mg/dL (0.6-1.3); GLUCOSE 101 mg/dL (74-106); MAGNESIUM - SERUM 1.5 mg/dL (1.8-2.4); POTASSIUM - SERUM 3.6 mmol/L (3.5-5.1); PROTEIN - SERUM 5.8 g/dL (6.4-8.2); SODIUM 141 mmol/L (136-145); UREA NITROGEN 10 mg/dL (7-18); eGFR NON AFRICAN AMERICAN 90 mL/min (90-120)
[2019-10-30 04:56] LABS: TROPONIN-I < 0.017 ng/mL (0.000-0.060)
--- NOTE | 2019-10-30 07:38 | NUR ---
PT AWAKE AN DORIENTED, LYING IN BED AT BEDSIDE. NO COMPLAINTS OR CONCERNS, WAITING ON PROCEDURE TO HAPPEN. CL IN [facility], SRX2.
--- NOTE | 2019-10-30 10:32 | NUR ---
PT BACK IN ROOM POST EGD. NO COMPLAINTS OR CONCERNS, STATES HE FEELS PRETTY SLEEPY BUT OTHERWISE WELL. PT IS SHOCKED HIS REFLUX WAS BAD THE DR STATES. CL IN REACH, SRX2. FAMILY AT BEDSIDE.
--- NOTE | 2019-10-30 11:43 | NUR ---
I have reviewed this patient and I concur with the Shift Assessment completed by the Licensed Practical Nurse today this shift.
--- NOTE | 2019-10-30 12:35 | NUR ---
PT AWAKE AND OREINTED, LYING IN BED. STATES HE FEELS MUCH BETTER. CURRENTLY TOLERATING FULL LIQUIDS WELL. NO COMPLAINTS OR CONCERNS AT THIS TIME. CL IN REACH, SRX2.
[2019-10-30 12:47] LABS: BILIRUBIN NEGATIVE (NEGATIVE); GLUCOSE NEGATIVE (NEGATIVE); KETONE SMALL mg/dL (NEGATIVE); NITRITE NEGATIVE (NEGATIVE); SPECIFIC GRAVITY 1.015 (1.005-1.020); UROBILINOGEN NORMAL (NORMAL)
--- NOTE | 2019-10-30 17:41 | NUR ---
PT AWAKE AND ORIENTED, I/V BAD. PT DOES NOT WANT ANOTHER ONE AT THIST JOSE D/T POSSIBLE D/C ONIGHT. CL IN REACH, SRX2. AT BEDSIDE.
--- NOTE | 2019-10-30 21:10 | NUR ---
EVENING ROUNDS COMPLETED. PT AAOX4, AFVSS, NO S/S OF DISTRESS. ALTHOUGH PT C/O PAIN 03/15 IN UPPER ABD QUAD. SCHEDULED PAIN MED GIVEN. PT VOICED THANKS SPOUSE AT BEDSIDE. NS INFUSING @ 75. PT DENIES ANY FURTHER NEEDS AT THIS TIME. WILL CPOC. CL WITHIN REACH, BED IN LOW, SR UP X2.
[2019-10-31 05:30] LABS: BASOPHILS 0.3 % (0-2); EOSINOPHILS 2.5 % (0-7); HEMATOCRIT 35.5 % (42.0-54.0); HEMOGLOBIN 12.4 g/dL (13.5-17.5); IMMATURE GRANULOCYTES 0.5 % (0-5); LYMPHOCYTES 13.5 % (15-50); MCHC 34.9 g/dL (31.0-37.0); MCV 88.8 fL (80.0-100.0); MEAN PLATELET VOLUME 9.6 fL (7.4-10.4); MONOCYTES 9.8 % (2-11); NEUTROPHILS 73.4 % (40-80); PLATELET COUNT 172 10x3/uL (130-400); RDW 12.3 % (11.5-14.5); WBC 5.9 10x3/uL (4.8-10.8)
[2019-10-31 05:59] LABS: ALBUMIN 2.3 g/dL (3.4-5.0); ALKALINE PHOSPHATASE 68 U/L (30-120); ALT (SGPT) 24 U/L (10-68); BILIRUBIN - TOTAL 0.73 mg/dL (0.2-1.3); CALC OSMOLALITY 276 mosm/kg (275-300); CALCIUM 7.8 mg/dL (8.5-10.1); CARBON DIOXIDE 22.6 mmol/L (21.0-32.0); CHLORIDE - SERUM 108 mmol/L (98-107); CREATININE - SERUM 0.9 mg/dL (0.6-1.3); GLUCOSE 103 mg/dL (74-106); MAGNESIUM - SERUM 1.6 mg/dL (1.8-2.4); POTASSIUM - SERUM 3.4 mmol/L (3.5-5.1); PROTEIN - SERUM 5.8 g/dL (6.4-8.2); SODIUM 139 mmol/L (136-145); UREA NITROGEN 9 mg/dL (7-18); eGFR NON AFRICAN AMERICAN 90 mL/min (90-120)
--- NOTE | 2019-10-31 07:10 | NUR ---
PT RECEIVED AWAKE AND ALERT IN BED, AT BEDSIDE. COMPLAINTS OF DISCOMFORT IN ESOPHAGEAL AREA. ESOPHAGRAM FOR TODAY.
[2019-10-31 11:50] VITALS: BP 147/98
--- NOTE | 2019-10-31 17:06 | MORECARE ---
CASE MANAGEMENT DISCHARGE SUMMARY PATIENT: DENIS NUÑEZ UNIT: [id number] ADM DATE: 10/29/19 AGE: 64 : 53 SEX: M ROOM/BED: D.2107 AUTHOR: [email or web address] PHYSICIAN: REFERRING PHYSICIAN: RORY VELA DO DATE OF SERVICE: 10/31/19 Discharge Plan Patient Name: DENIS NUÑEZ Facility: [facility]:[place] : 1955 Planned Disposition: Home Anticipated Discharge Date: 10/31/19 Discharge Date: Expected LOS: 2 Initial Reviewer: [email or web address] Initial Review Date: 10/31/2019 Generated: 10/31/19 6:05 pm Comments DCP- Discharge Planning Updated by [email or web address]: Chang Marino on 10/31/19 3:[address] Patient Name: DENIS NUÑEZ Admission Status: ER Accout number: [id number] Admission Date: 10-29-2019 : 1955 Admission Diagnosis: Attending: RORY VELA Current LOS: 2 Anticipated DC Date: 10-31-2019 Planned Disposition: Home Primary Insurance: MEDICARE A & B Discharge Planning Comments: CM MET WITH PT IN ROOM TO DISCUSS DISCHARGE PLANNING AND NEEDS. PT REPORTS LIVING AT HOME INDEPENDENTLY WITH . PT HASA CANE WITH NO MEDICAL EQUIPMENT PROVIDER PREFERNECE. PT HAS NO OUTSIDE SERVICES ASSISTING IN THE HOME. CM DISCUSSED AVAILABILITY OF HOME HEALTH, REHAB SERVICES AND MEDICAL EQUIPMENT. PT DENIES DISCHARGE NEEDS, REPORTS HIS WILL PICK HIM UP FOR DISCHARGE HOME. IMPORTANT MESSAGE FROM MEDICARE PROVIDED AND EXPLAINED. Corporate Consultant: Chang Marino DCPIA - Discharge Planning Initial Assessment Updated by [email or web address]: Chang Marino on 10/31/19 4:58 pm * Is the patient Alert and Oriented? Yes * How many steps to enter\exit or inside your home? NONE * PCP DR. LOPEZ * Pharmacy [facility] * Preadmission Environment Home with Family * ADLs Independent * Equipment Cane * Other Equipment NO MEDICAL EQUIPMENT PROVIDER PREFERNECE * List name and contact numbers for known caregivers / representatives who currently or will assist patient after discharge: SANIA NUÑEZ, SPOUSE, * Verbal permission to speak to the caregivers and representatives has been obtained from the patient. Yes * Community resources currently utilized None * Please name any agencies selected above. NONE * Additional services required to return to the preadmission environment? No * Can the patient safely return to the preadmission environment? Yes * Has this patient been hospitalized within the prior 30 days at any hospital? No Coverage Notice Reviewer: [email or web address] Carlos Chang [place] Notice Issued Date-Time: 10/31/2019 14:20 Notice Type: IM Discharge Notice Notice Delivered To: Patient Relationship to Patient: Photographic Machine Operator Name: Delivery Method: HAND - Hand Delivered Edith Days: Prior Verbal Notification: Recipient Understood Notice: Yes Recipient Signature: Yes Med Rec Note Co-signed by Attending: Coverage Notice Comment: Patient Name: DENIS NUÑEZ Page [id number] at 1706 All edits/amendments must be made on the electronic document DICTATION DATE: 10/31/191704 CHILDREN'S NURSERY ASSISTANT: PK 10/31/191704 RPT#: [id number] DC DATE: STATUS: ADM IN [facility] [address] [place] [address] END OF REPORT
--- NOTE | 2019-10-31 17:30 | NUR ---
PT DISCHARGE INSTRUCTIONS REVIEWED, IV REMOVED, WHEELED TO FRONT DOOR VIA WHEELCHAIR.
== END 2019-10-31 17:31 | disposition home or self-care (01) | DRG 392 ==
LOC: D.ER 21:53 → D.M2 10-29 00:04
PROVIDERS: Family Medicine; Internal Medicine Nephrology; ADMIT Family Medicine; ATTEND Family Medicine
PROC: 0DB98ZX Excision of Duodenum, Via Natural or Artificial Opening Endoscopic, Diagnostic (ICD-10-PCS; principal; 2019-10-30)
PROC: 0DB68ZX Excision of Stomach, Via Natural or Artificial Opening Endoscopic, Diagnostic (ICD-10-PCS; 2019-10-30)
PROC: 0DB48ZX Excision of Esophagogastric Junction, Via Natural or Artificial Opening Endoscopic, Diagnostic (ICD-10-PCS; 2019-10-30)
DX: K44.0 Diaphragmatic hernia with obstruction, without gangrene (principal); K22.10 Ulcer of esophagus without bleeding; K29.70 Gastritis, unspecified, without bleeding; K29.80 Duodenitis without bleeding; I25.10 Atherosclerotic heart disease of native coronary artery without angina pectoris; I10 Essential (primary) hypertension; E78.5 Hyperlipidemia, unspecified; D64.9 Anemia, unspecified; E83.42 Hypomagnesemia; F10.10 Alcohol abuse, uncomplicated; Z86.73 Personal history of transient ischemic attack (TIA), and cerebral infarction without residual deficits

== ENCOUNTER 2019-11-10 17:07 | Inpatient (IN) | payer MEDICARE, OTHER ==
[~2019-11-10] VITALS: Ht 167.6 cm; Wt 80.5 kg
[~2019-11-10 17:07] MED LIST changes: +CARAFATE1 G PO; +PROTONIX40 MG PO; +PROZAC20 MG PO
[2019-11-15 07:13] LABS: HEMOGLOBIN 13.9 g/dL (13.5-17.5); MCH 30.4 pg (26.0-34.0); MCHC 33.9 g/dL (31.0-37.0); MCV 89.7 fL (80.0-100.0); MEAN PLATELET VOLUME 8.9 fL (7.4-10.4); RBC 4.57 10x6/uL (4.20-6.10); RDW 11.9 % (11.5-14.5); WBC 4.3 10x3/uL (4.8-10.8)
[2019-11-15 08:14] VITALS: BP 130/78; BMI 28.6
[2019-11-15 13:24] VITALS: BP 137/75
--- NOTE | 2019-11-15 13:31 | NUR ---
RECEIVED PATIENT FROM RECOVERY. SLEEPING, AROUSES TO VOICE. ALERT AND ORIENTED. 5 LAP SITES TO ABDOMEN COVERED WITH STERISTRIPS. VITALS STABLE. IV TO LEFT HAND, LR INFUSING @ 125ML/HR. SITE PATENT WITHOUT REDNESS OR SWELLING. ON 2L O2, NC. RESTING COMFORTABLY. DENIES ANY NEEDS AT THIS TIME. FAMILY AT BEDSIDE. CALL LIGHT IN REACH. WILL CONTINUE TO MONITOR.
[2019-11-15 16:53] VITALS: BP 144/83
--- NOTE | 2019-11-15 18:23 | NUR ---
ALERT AND ORIENTED. NO C/O PAIN, MORPHINE TRUMPET TEACHER MANAGING PAIN. NO S/S OF ACUTE DISTRESS NOTED. DENIES ANY NEEDS AT THIS TIME. CALL LIGHT IN REACH. WILL CONTINUE TO MONITOR.
[2019-11-15 18:57] VITALS: BP 144/83; Ht 167.6 cm; Wt 80.5 kg
--- NOTE | 2019-11-16 02:29 | NUR ---
alert and orented IV to left hand with LR at 125 and morphine PLASTIC EXTRUDING MACHINE OPERATOR in place. SCD's in place. 5 lap sited to abd no bleeding noted. up and walked around nursing station this shift. up to the bathroom and urinated. water and call light in reach, at bedside.
[2019-11-16 04:00] VITALS: BP 99/58
[2019-11-16 05:01] LABS: BASOPHILS 0 % (0-2); EOSINOPHILS 0 % (0-7); IMMATURE GRANULOCYTES 0.3 % (0-5); LYMPHOCYTES 7.9 % (15-50); MCH 29.7 pg (26.0-34.0); MCHC 33.4 g/dL (31.0-37.0); MCV 88.7 fL (80.0-100.0); MEAN PLATELET VOLUME 8.9 fL (7.4-10.4); MONOCYTES 6.9 % (2-11); NEUTROPHILS 84.9 % (40-80); PLATELET COUNT 346 10x3/uL (130-400); RDW 11.6 % (11.5-14.5)
[2019-11-16 05:02] LABS: HEMATOCRIT 31.4 % (42.0-54.0); HEMOGLOBIN 10.5 g/dL (13.5-17.5); RBC 3.54 10x6/uL (4.20-6.10); WBC 7.6 10x3/uL (4.8-10.8)
[2019-11-16 05:13] LABS: ALBUMIN 2.2 g/dL (3.4-5.0); ANION GAP 14.6 mmol/L (8-16); BILIRUBIN - TOTAL 0.25 mg/dL (0.2-1.3); CALCIUM 8.2 mg/dL (8.5-10.1); CARBON DIOXIDE 22.8 mmol/L (21.0-32.0); CREATININE - SERUM 1.2 mg/dL (0.6-1.3); POTASSIUM - SERUM 4.4 mmol/L (3.5-5.1); PROTEIN - SERUM 5.9 g/dL (6.4-8.2)
--- NOTE | 2019-11-16 06:55 | NUR ---
ALERT AND ORIENTED. NO C/O PAIN, MORPHINE LABORER CHEMICAL PROCESSING MANAGING PAIN AT THIS TIME. NO S/S OF ACUTE DISTRESS NOTED. IV TO LEFT HAND, LR INFUSING @ 125ML/HR. SITE PATENT WITHOUT REDNESS OR SWELLING. POD #1, 5 LAP SITES TO ABDOMEN WITH STERI-STRIPS. SCDS ON. DENIES ANY NEEDS AT THIS TIME. CALL LIGHT IN REACH. WILL CONTINUE TO MONITOR.
[2019-11-16 08:17] VITALS: BP 85/46
[2019-11-16] MEDS ORDERED: HYDROCODON-ACE1 EAC7 PO (10:46)
[2019-11-16] MEDS ORDERED: ZOFRAN4 MG PO (10:46)
--- NOTE | 2019-11-16 12:34 | NUR ---
DISCHARGED PATIENT HOME WITH VIA WHEELCHAIR ACCOMPANIED BY HOSPITAL STAFF. DISCONTINUED IV, CATHETER TIP INTACT. WENT OVER DISCHARGE INSTRUCTIONS WITH PATIENT, VERBALIZED UNDERSTANDING. DENIES ANYTHING FURTHER.
--- NOTE | 2019-11-17 08:32 | MORECARE ---
CASE MANAGEMENT DISCHARGE SUMMARY PATIENT: DENIS NUÑEZ UNIT: [id number] ADM DATE: 11/15/19 AGE: 64 : 53 SEX: M ROOM/BED: D.2234 AUTHOR: CHACHA POOLE PHYSICIAN: REFERRING PHYSICIAN: RAMONE NOGUEIRA MD DATE OF SERVICE: 11/17/19 Discharge Plan Patient Name: DENIS NUÑEZ [facility] [facility] 1955 Planned Disposition: Home Anticipated Discharge Date: Discharge Date: 11/16/2019 Expected LOS: 0 Initial Reviewer: [email or web address] Initial Review Date: 11/17/2019 Generated: 11/17/19 9:31 am Patient Name: DENIS NUÑEZ Page [id number] at 0832 All edits/amendments must be made on the electronic document DICTATION DATE: 11/17/19830 SOCIAL SECRETARY: KP 11/17/19830 RPT#: [id number] DC DATE:11/16/19 STATUS: DIS IN [facility] [address] [place] [address] END OF REPORT
== END 2019-11-16 13:29 | disposition home or self-care (01) | DRG 328 ==
LOC: D.MS 11-15 06:44 → D.SDCHOLD 11-15 06:44 → D.MS 11-15 12:51
PROVIDERS: Anesthesiology; ADMIT Surgery; ATTEND Surgery
PROC: 0BQT4ZZ Repair Diaphragm, Percutaneous Endoscopic Approach (ICD-10-PCS; principal; 2019-11-15 09:45)
PROC: 0DV44CZ Restriction of Esophagogastric Junction with Extraluminal Device, Percutaneous Endoscopic Approach (ICD-10-PCS; 2019-11-15 09:45)
DX: K44.0 Diaphragmatic hernia with obstruction, without gangrene (principal); K21.0 Gastro-esophageal reflux disease with esophagitis; I25.10 Atherosclerotic heart disease of native coronary artery without angina pectoris; I10 Essential (primary) hypertension